=== PATIENT | female | born 1995 ===

== ENCOUNTER 2023-06-10 10:00 | Outpatient (REF) | payer MEDICAID, SELFPAY ==
[2023-06-13 21:59] LABS: C. trachomatis RNA TMA NOT DETECTED (NOT DETECTED); N. gonorrhoeae RNA TMA NOT DETECTED (NOT DETECTED)
== END 2023-06-10 10:01 | disposition home or self-care (01) ==
LOC: HO.HHCLNP 10:00
PROVIDERS: Visit Provider Emergency Medicine
DX: R10.30 Lower abdominal pain, unspecified (principal)
CPT/HCPCS: 36415; 81513; 87086; 87491; 87591

== ENCOUNTER 2023-06-10 12:02 | Outpatient (REF) | payer MEDICAID, SELFPAY | END 2023-06-10 12:03 | disposition home or self-care (01) | LOC: HO.HHCLNP 12:02 | PROVIDERS: Visit Provider Emergency Medicine | DX: R10.30 Lower abdominal pain, unspecified (principal) | CPT/HCPCS: 87086 ==

== ENCOUNTER 2023-08-11 17:24 | Outpatient (REF) | payer MEDICAID, SELFPAY ==
[2023-08-11 17:31] LABS: Appearance Urine Cloudy; Color Urine Yellow; Glucose Urine UA Negative (Negative); Leukocyte Esterase Urine Trace (Negative); Nitrite Urine Negative (Negative); PH 6.5 (5.0-9.0); UMIC TRIGGER UACC YES; Urine Blood Negative (Negative); Urine Ketones Negative (Negative); Urine Protein Trace mg/dL (Neg-Trace)
[2023-08-11 17:34] LABS: Bacteria Urine 2+ (None Seen); Hyaline Casts Urine 0-2 /LPF (0-2); RBC Urine 0-2 /HPF (0-2); Squamous Epithelial Cell Urine >20 /HPF (0-2); WBC Urine 0-5 /HPF (0-5)
[2023-08-13 17:25] LABS: C. trachomatis RNA TMA NOT DETECTED (NOT DETECTED); Candida glabrata RNA NOT DETECTED (NOT DETECTED); Candida species RNA NOT DETECTED (NOT DETECTED); N. gonorrhoeae RNA TMA NOT DETECTED (NOT DETECTED); Trichomonas vaginalis RNA NOT DETECTED (NOT DETECTED)
== END 2023-08-11 17:25 | disposition home or self-care (01) ==
LOC: HO.HHCLNP 17:24
PROVIDERS: Visit Provider Nurse Practitioner Family
DX: R19.8 Other specified symptoms and signs involving the digestive system and abdomen (principal)
CPT/HCPCS: 36415; 81001; 81513; 87481; 87491; 87591; 87661

== ENCOUNTER 2023-11-09 19:38 | Outpatient (REF) | payer MEDICAID, SELFPAY ==
[2023-11-13 03:49] LABS: HPV mRNA E6/E7 rflx Not Detected (Not Detected)
== END 2023-11-09 19:39 | disposition home or self-care (01) ==
LOC: HO.HHCLNP 19:38
PROVIDERS: Visit Provider Advanced Practice Midwife
DX: Z01.419 Encounter for gynecological examination (general) (routine) without abnormal findings (principal); R30.0 Dysuria
CPT/HCPCS: 87086; 87624; 88142

== ENCOUNTER 2024-11-02 11:08 | Outpatient (REF) | payer MEDICAID, SELFPAY ==
--- OUTSIDE RECORDS SUMMARY | 2024-11-02 12:04 | XMS_ITS | Encounter Summary ---
Author Organization [employer] Address [address] [facility] [place] [address] Care Team Providers Care Manager Servicing Name Role Phone Lyn Menchaca Primary Care Provider [phone] Reason for Visit * Reason Onset Date Comments Echo 11/02/2024 Encounter Details Date Type Department Care Team ([facility] st Contact Info) Description 11/02/2024 Telephone [facility] [address] [place] [address] Lyn Menchaca FNP [address] [place] [address] Echo Social History Tobacco Use Types Packs/Day Years Used Date Smoking Tobacco: Never Smokeless Tobacco: Never Alcohol Use Standard Drinks/Week Comments Never 0 (1 standard drink = 0.6 oz pur e alcohol) Depression Answer Date Recorded Patient Health Questionnaire-9 Score 3 09/09/2024 Patient Health Questionnaire-9 Score 3 09/09/2024 Last PHQ-9: Questionnaire Data Not on file 0 09/09/2024 Housing Stability Answer Date Recorded What is your housing situation today? I have tequila levine 09/02/[address] you li ve. Do you have problems with any of the following? Water leaks;None of the above;Inadequate heat 09/02/2024 Food Insecurity Answer Date Recorded Within the past 12 months, y ou worried that your food would run out before you got money to buy more: Never True 09/02/2024 Within the past 12 months,th e food you bought just didn't last and you didn't have enough money to get more: Never True 08/2024 Transportation Answer Date Recorded In the past 12 months, has l ack of transportation kept you from medical appts, meetings, work or from getting things needed for daily living? Yes, it has kept me from medical appointments or getting medications. 09/02/2024 Utilities Answer Date Recorded In the past 12 months, has t he electric, gas, oil or water company threatened to shut off services in your home? No 09/02/2024 Depression Answer Date Recorded Patient Health Questionnaire-2 Score 0 09/09/2024 Internet Access Answer Date Recorded Internet Access Q1 Yes 09/02/2024 Internet Access Q2 Not on file 09/02/2024 Comments No Sex and Gender Information Value Date Recorded Sex Assigned at Female 06/10/2023 9:02 AM EST Legal Sex Female 12:07 PM EDT Gender Identity Female 06/10/2023 9:02 AM EST Sexual Orientation Straight 06/10/2023 9: 02 AM EST documented as of this encounter Miscellaneous Notes * Telephone Encounter - Keyla Bunn MA - 11/02/2024 11:00 AM EDT [place] [facility] [place] ([phone]) and rescheduled echo appt for Thursday11/28/24 @ 2pm. With the help of [place] [employer] [place] ([place] [id number]) pt was informed of day and time and she understood. documented in this encounter Plan of Treatment Upcoming Encounters Date Type Department Care Team (Late st Contact Info) Description 05/11/2025 8:00 AM EST Office Visit [facility] [address] [place] [address] Kelley Gordon documented as of this encounter Visit Diagnoses Not on filedocumented in this encounter Additional Health Concerns Assessment Noted Time PHQ-9 Depression Total Score: 3 09/10/19 25 1:58 PM EDT documented as of this encounter Care Teams Manager Servicing Relationship Specialty Start Date End Date Lyn Menchaca FNP [address] [place] [address] PCP - General Family Medicine 09/09/24 documented as of this encounter
[2024-11-02 13:20] LABS: MANUAL DIFF FLAG NO
[2024-11-02 13:26] LABS: Basophils Percent Auto 0.4 % (0-2); Eosinophils Absolute Auto 0.3 X10*3/uL (0.0-0.4); Hematocrit 39.3 % (37.0-47.0); Hemoglobin 12.8 g/dl (12.0-16.0); Imm Gran Abs Auto 0.02 X10*3/uL (0.00-0.03); Imm Gran Pct Auto 0.3 % (0.0-0.4); Lymphocytes Absolute Auto 3.5 X10*3/uL (1.2-4.9); Lymphocytes Percent Auto 52.4 % (20-40); Mean Corpuscular HGB Conc 32.6 g/dl (31.0-35.0); Mean Corpuscular Hemoglobin 30.3 pg (27.0-33.0); Mean Corpuscular Volume 93.1 fL (80.0-98.0); Mean Platelet Volume 11.7 fL (9.4-12.3); Monocytes Absolute Auto 0.3 X10*3/uL (0.1-1.2); Monocytes Percent Auto 5.1 % (2-11); Neutrophils Absolute Auto 2.5 x10*3/uL (2.0-8.3); Neutrophils Percent Auto 37.8 % (45-73); Platelet Count 287 X10*3/uL (160-400); Red Blood Count 4.22 X10*6/uL (4.20-5.50); Red Cell Distribution Width 11.8 % (11.0-16.0); White Blood Count 6.7 X10*3/uL (4.8-10.8)
[2024-11-02 13:32] LABS: Estimated Average Glucose 97 mg/dL; Total Hemoglobin (HGBA1C) 3428.4563 umol/L
[2024-11-02 14:52] LABS: TSH reflex Free T4 1.78 uIU/mL (0.32-4.0)
[2024-11-02 14:53] LABS: Anion Gap 9 (12-20)
[2024-11-02 14:57] LABS: Alanine Aminotransferase 25 U/L (0-31); Albumin Level 4.5 g/dL (3.5-5.0); Alkaline Phosphatase 60 U/L (39-117); Aspartate Amino Transferase 27 U/L (5-31); Bilirubin Total 0.3 mg/dL (0.0-1.0); Blood Urea Nitrogen 10 mg/dL (9-16); Carbon Dioxide 26 mmol/L (22-29); Chloride 107 mmol/L (96-108); Cholesterol 149 mg/dL (<200); Estimated Glomerular Filt Rate > 60; Glucose Random 86 mg/dL (60-115); HDL Cholesterol 36 mg/dL (>40); LDL Cholesterol Calculated 95 mg/dL (<100); Potassium 3.9 mmol/L (3.3-5.1); Sodium 138 mmol/L (135-145); Total Protein 7.9 g/dL (6.5-8.0); Triglycerides 91 mg/dL (<150)
[2024-11-02 21:56] LABS: CT PCR NOT DETECTED (Not Detect.); NG PCR NOT DETECTED (Not Detect.)
[2024-11-03 04:59] LABS: HIV AB/AG Nonreactive (Nonreactive); HIV Num 1 0.06 S/CO (0.00-0.99)
[2024-11-03 11:43] LABS: RPR Rapid Plasma Reagin NON-REACTIVE (NON-REACTIVE)
[2024-11-04 15:13] LABS: HCV Log PCR <1.18 NOT DETECTED Log IU/mL (NOT DETECTED); HepC Viral Load <15 NOT DETECTED IU/mL (NOT DETECTED)
[2024-11-04 21:18] LABS: TS Negative Control Passed; TS Panel A 46; TS Panel B 144; TS Positive Control Passed; TSpotTB Positive (Negative)
== END 2024-11-02 11:09 | disposition home or self-care (01) ==
LOC: HO.HHCL 11:08
PROVIDERS: Visit Provider Registered Nurse
DX: Z00.00 Encounter for general adult medical examination without abnormal findings (principal)
CPT/HCPCS: 80053; 80061; 83036; 84443; 85025; 86481; 86592; 87389; 87491; 87522; 87591